=== PATIENT | male | born 1965 | race Caucasian/White ===

== ENCOUNTER 2019-04-11 12:11 | Inpatient (IN) | payer OTHER ==
[~2019-04-11] VITALS: Ht 172.7 cm; Wt 136.3 kg
[2019-04-11] MEDS ORDERED: IV NORMAL SALINE 1000ML BAG 1,000 ML IV SCH (12:42)
[2019-04-11] MEDS ORDERED: ONDANSETRON PF 4 MG/2 ML VIAL. IV ONE (12:45)
--- NOTE | 2019-04-11 12:53 | PHYS DOC ---
Past Medical History Past Medical History: Depression Past Surgical History: Appendectomy, Other Additional Past Surgical Histo: Lapband, Hernia, Urethral enlargement, Adult General Chief Complaint Chief Complaint: ABDOMINAL PAIN HPI HPI Patient is a 53 year old male who presents with states approximately 2 weeks ago had some constipation issues and he states he drank a lot of water and had large stools. Denies taking any laxatives. Patient states he then started having some diarrhea. Patient states he's had continuous bloating with occasional sharp pains in his lower abdomen bilaterally. Patient states he does have some nausea and yesterday he vomited a couple times. Patient states he is keeping fluids down but he has no appetite for food. Patient states he is getting occasional dizziness but he thinks that that is from being dehydrated. Patient currently has no pain he just feels pressure in his abdomen all over. Patient states he has a lap band in place. Review of Systems Review of Systems Respiratory: Denies cough.+ shortness of breath [] Cardiovascular: No additional information not addressed in HPI [] GI: abdominal pain, nausea, vomiting, denies bloody stools, + diarrhea [] Neurologic: Dizziness, Denies headache, focal weakness or sensory changes [] All other systems were reviewed and found to be within normal limits, except as documented in this note. Current Medications Current Medications Current Medications Medications (Trade) Dose Ordered Sig/Jose Start Time Stop Time Status Last Admin Dose Admin Info (CONTRAST GIVEN -- Rx MONITORING) 1 each PRN DAILY PRN 04/11/19 13:15 04/13/19 13:14 Iohexol (Omnipaque 300 Mg/ml) 75 ml 1X ONCE 04/11/19 13:00 04/11/19 13:04 DC 04/11/19 13:00 75 ML Ondansetron HCl (Zofran) 4 mg 1X ONCE 04/11/19 12:45 04/11/19 12:47 DC 04/11/19 13:30 4 MG Sodium Chloride 1,000 ml @ 1,000 mls/hr Q1H 04/11/19 12:42 04/11/19 13:41 DC 04/11/19 13:30 1,000 MLS/HR Allergies Allergies Allergies Coded Allergies Type Severity Reaction Last Updated Verified No Known Drug Allergies 04/11/19 No Physical Exam Physical Exam Constitutional: Well developed, well nourished, no acute distress, non-toxic appearance. [] HENT: Normocephalic, atraumatic, bilateral external ears normal, oropharynx moist, no oral exudates, nose normal. [] Eyes: PERRLA, EOMI, conjunctiva normal, no discharge. [] Neck: Normal range of motion, no tenderness, supple, no stridor. [] Cardiovascular:Heart rate regular rhythm, no murmur [] Lungs & Thorax: Bilateral breath sounds clear to auscultation [] Abdomen: Bowel sounds normal, distended, no tenderness, no masses, no pulsatile masses. [] Skin: Warm, dry, no erythema, no rash. [] Back: No tenderness, no CVA tenderness. [] Extremities: No tenderness, no cyanosis, no clubbing, ROM intact, no edema. [] Neurologic: Alert and oriented X 3, normal motor function, normal sensory f unction, no focal deficits noted. [] Psychologic: Affect normal, judgement normal, mood normal. [] Current Patient Data Vital Signs Vital Signs Date Time Temp Pulse Resp B/P (MAP) Pulse Ox O2 Delivery O2 Flow Rate FiO2 04/11/19 12:25 97.8 104 18 141/96 (111) 96 Room Air 97.8 Lab Values Laboratory Tests Test 04/11/19 13:00 White Blood Count 8.4 x10^3/uL (4.0-11.0) Red Blood Count 5.55 x10^6/uL (4.30-5.70) Hemoglobin 15.7 g/dL (13.0-17.5) Hematocrit 44.8 % (39.0-53.0) Mean Corpuscular Volume 81 fL (79-100) Mean Corpuscular Hemoglobin 28 pg (25-35) Mean Corpuscular Hemoglobin Concent 35 g/dL (31-37) Red Cell Distribution Width 13.4 % (11.5-14.5) Platelet Count 306 x10^3/uL (140-400) Neutrophils (%) (Auto) 63 % (31-73) Lymphocytes (%) (Auto) 22 % (24-48) L Monocytes (%) (Auto) 14 % (0-9) H Eosinophils (%) (Auto) 1 % (0-3) Basophils (%) (Auto) 1 % (0-3) Neutrophils # (Auto) 5.3 x10^3/uL (1.8-7.7) Lymphocytes # (Auto) 1.8 x10^3/uL (1.0-4.8) Monocytes # (Auto) 1.2 x10^3/uL (0.0-1.1) H Eosinophils # (Auto) 0.1 x10^3/uL (0.0-0.7) Basophils # (Auto) 0.1 x10^3/uL (0.0-0.2) Sodium Level 132 mmol/L (136-145) L Potassium Level 3.8 mmol/L (3.5-5.1) Chloride Level 99 mmol/L (98-107) Carbon Dioxide Level 25 mmol/L (21-32) Anion Gap 8 (6-14) Blood Urea Nitrogen 13 mg/dL (8-26) Creatinine 1.0 mg/dL (0.7-1.3) Estimated GFR (Cockcroft-Gault) 77.6 BUN/Creatinine Ratio 13 (6-20) Glucose Level 113 mg/dL (70-99) H Calcium Level 8.7 mg/dL (8.5-10.1) Total Bilirubin 0.6 mg/dL (0.2-1.0) Aspartate Amino Transferase (AST) 32 U/L (15-37) Alanine Aminotransferase (ALT) 27 U/L (16-63) Alkaline Phosphatase 89 U/L (46-116) Troponin I Quantitative < 0.017 ng/mL (0.000-0.055) Total Protein 7.8 g/dL (6.4-8.2) Albumin 3.0 g/dL (3.4-5.0) L Albumin/Globulin Ratio 0.6 (1.0-1.7) L Lipase 136 U/L (73-393) Laboratory Tests 04/11/19 13:00 Laboratory Tests 04/11/19 13:00 EKG EKG SINUS RHYTHM AND NO STEMI[] Interpretation Time: [address] WEINSTEIN Radiology/Procedures Radiology/Procedures [] Impressions: [facility] [address] [place], [place] [id number] IMAGING REPORT Signed PATIENT: ELEANOR SHUKLA ACCOUNT: [id number] : 1965 LOCATION: ER AGE: 53 SEX: M EXAM STATUS: REG ER ORD. PHYSICIAN: TESHA SHARPE APRN REASON: epigastric pain PROCEDURE: PORTABLE CHEST 1V PORTABLE CHEST 1V Clinical Indication: Epigastric pain Comparison: None. Findings: Probably tortuous thoracic aorta. The cardiac size is normal. Relatively lucent opacity right paratracheal region may be vascular or small azygos fissure or prominent manubrium. Lungs are clear. There is no pneumothorax. No pleural effusion is appreciated. No acute bone abnormality. IMPRESSION: No acute cardiopulmonary process. Electronically signed by: Ulysses Prado MD (04/11/2019 1:29 PM) [facility] DICTATED and SIGNED BY: ULYSSES PRADO MD DATE: 04/11/19 1329 [facility] [address] [place] [address] IMAGING REPORT Signed PATIENT: ELEANOR SHUKLA ACCOUNT: [id number] : 1965 LOCATION: ER AGE: 53 SEX: M EXAM STATUS: REG ER ORD. PHYSICIAN: TESHA SHARPE APRN REASON: constipation, bloating, vomting, hx lap band PROCEDURE: CT ABD PELV W/ IV CONTRST ONLY CT ABD PELV W/ IV CONTRST ONLY History: Constipation, bloating, vomiting Comparison: None. Technique: After administration of intravenous contrast, helical CT of the abdomen and pelvis was performed from the lung bases through the ischial tuberosities. Coronal and sagittal reconstructions were obtained. 75 mL of Omnipaque 300 were used. One or more of the following dose reduction techniques were utilized: Automated exposure control (AEC), Adjustment of mA and/or kV according to patient size, Use of iterative reconstruction technique such as ASiR, CT scan done according to ALARA and image gently/image wisely Abdomen Findings: The visualized lung bases are clear. The liver, gallbladder, pancreas, spleen, and bilateral adrenal glands are normal. Symmetric renal enhancement. There is no focal renal mass. There is no hydronephrosis. Gastric lap band in place. Multiple dilated loops of small bowel containing fluid and gas and measuring up to 4 cm in diameter. Distended large bowel containing gas and fluid. There is no free fluid. There is no mesenteric or retroperitoneal adenopathy. The abdominal aorta is normal in caliber. Pelvis Findings: Urinary bladder is decompressed. No pelvic free fluid. There is no pelvic or inguinal adenopathy. There is no acute bony abnormality. IMPRESSION: Multiple dilated loops of small bowel and well distended large bowel, with gas and fluid throughout the small and large bowel. Findings are favored to represent a nonspecific enteritis or adynamic ileus. Electronically signed by: Katerina Kellogg MD (04/11/2019 2:20 PM) [facility] DICTATED and SIGNED BY: KATERINA KELLOGG MD DATE: 04/11/19 1420 Course & Med Decision Making Course & Med Decision Making Abdomen is distended but there is no pain with palpation. Alert and oriented. Speaks in full clear sentences. Ambulatory with a steady gait. Afebrile. Patient states over the last week or so, he has moments he has become diaphoretic. Patient denies chest pain but states because of all the bloating and tightness in his abdomen he has a hard time taking a deep breath. Skin pink warm and dry. Bowel sounds normal. Mucus membranes are moist. Vital signs within normal limits. Afebrile. Lungs are clear to auscultation in all lobes. Patient has a history of appendectomy, LAP-BAND, depression, hernia. Patient denies numbness or tingling, headache, visual changes, weakness, fever, recent illness, back pain, neck pain, dysuria, chest pain. CT ABD PELV SHOWS IMPRESSION: Multiple dilated loops of small bowel and well distended large bowel, with gas and fluid throughout the small and large bowel. Findings are favored to represent a nonspecific enteritis or adynamic ileus. I have spoken to Dr. Wilson for admission. I will consult GI. Patient will stay nothing by mouth. Dragon Disclaimer Dragon Disclaimer This electronic medical record was generated, in whole or in part, using a voice recognition dictation system. Departure Departure Impression: Primary Impression: Ileus Disposition: ADMITTED INPATIENT Admitting Physician: SOLO (angely) Condition: STABLE Referrals: UNKNOWN PCP NAME (PCP) TESHA SHARPE APRN Apr 11, 2019 12:53
[2019-04-11] MEDS ORDERED: IOHEXOL 300 MG/ML 100ML VIAL. IV ONE (13:00)
[2019-04-11 13:12] LABS: BASO # 0.1 x10^3/uL (0.0-0.2); BASO % 1 % (0-3); EOS # 0.1 x10^3/uL (0.0-0.7); EOS % 1 % (0-3); HEMATOCRIT 44.8 % (39.0-53.0); HEMOGLOBIN 15.7 g/dL (13.0-17.5); LYMPH # 1.8 x10^3/uL (1.0-4.8); LYMPH % 22 % (24-48); MEAN CORPUSCULAR HEMOGLOBIN 28 pg (25-35); MEAN CORPUSCULAR HGB CONC 35 g/dL (31-37); MEAN CORPUSCULAR VOLUME 81 fL (79-100); MONO # 1.2 x10^3/uL (0.0-1.1); MONO % 14 % (0-9); NEUT # 5.3 x10^3/uL (1.8-7.7); NEUT % 63 % (31-73); PLATELET COUNT 306 x10^3/uL (140-400); RED BLOOD COUNT 5.55 x10^6/uL (4.30-5.70); RED CELL DISTRIBUTION WIDTH 13.4 % (11.5-14.5); WHITE BLOOD COUNT 8.4 x10^3/uL (4.0-11.0)
[2019-04-11] MEDS ORDERED: CONTRAST GIVEN. MC PRN (13:15)
[2019-04-11 13:29] LABS: CALCIUM 8.7 mg/dL (8.5-10.1); GFR 77.6; POTASSIUM 3.8 mmol/L (3.5-5.1)
--- NOTE | 2019-04-11 13:32 | RAD ---
PORTABLE CHEST 1V Clinical Indication: Epigastric pain Comparison: None. Findings: Probably tortuous thoracic aorta. The cardiac size is normal. Relatively lucent opacity right paratracheal region may be vascular or small azygos fissure or prominent manubrium. Lungs are clear. There is no pneumothorax. No pleural effusion is appreciated. No acute bone abnormality. IMPRESSION: No acute cardiopulmonary process. Electronically signed by: Ulysses Prado MD (04/11/2019 1:29 PM) [facility]
[2019-04-11 13:34] LABS: ALBUMIN/GLOBULIN RATIO 0.6 (1.0-1.7); TOTAL BILIRUBIN 0.6 mg/dL (0.2-1.0); TOTAL PROTEIN 7.8 g/dL (6.4-8.2)
--- NOTE | 2019-04-11 14:22 | RAD ---
CT ABD PELV W/ IV CONTRST ONLY History: Constipation, bloating, vomiting Comparison: None. Technique: After administration of intravenous contrast, helical CT of the abdomen and pelvis was performed from the lung bases through the ischial tuberosities. Coronal and sagittal reconstructions were obtained. 75 mL of Omnipaque 300 were used. One or more of the following dose reduction techniques were utilized: Automated exposure control (AEC), Adjustment of mA and/or kV according to patient size, Use of iterative reconstruction technique such as ASiR, CT scan done according to ALARA and image gently/image wisely Abdomen Findings: The visualized lung bases are clear. The liver, gallbladder, pancreas, spleen, and bilateral adrenal glands are normal. Symmetric renal enhancement. There is no focal renal mass. There is no hydronephrosis. Gastric lap band in place. Multiple dilated loops of small bowel containing fluid and gas and measuring up to 4 cm in diameter. Distended large bowel containing gas and fluid. There is no free fluid. There is no mesenteric or retroperitoneal adenopathy. The abdominal aorta is normal in caliber. Pelvis Findings: Urinary bladder is decompressed. No pelvic free fluid. There is no pelvic or inguinal adenopathy. There is no acute bony abnormality. IMPRESSION: Multiple dilated loops of small bowel and well distended large bowel, with gas and fluid throughout the small and large bowel. Findings are favored to represent a nonspecific enteritis or adynamic ileus. Electronically signed by: Sammy Kellogg MD (04/11/2019 2:20 PM) [facility]
[2019-04-11] MEDS ORDERED: ONDANSETRON PF 4 MG/2 ML VIAL. IV PRN ×2 (15:15→16:45)
[2019-04-11] MEDS: fentaNYL PF VIAL 100 MCG/2 ML VIAL IV PRN ×2 (15:52→20:55)
[2019-04-11] MEDS: IV NORMAL SALINE 1000ML BAG 1,000 ML IV SCH (15:56)
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
[2019-04-11] MEDS: PSYLLIUM HUSK (SUGAR FREE) 1 PKT PACKET PO SCH ×2 (16:45→17:49)
[2019-04-11] MEDS: KETOROLAC 30 MG/ML VIAL. IVP PRN (16:55)
[2019-04-11] MEDS ORDERED: FLU VAX QS 2019-20 (36MOS+)/PF 0.5 ML SYRINGE. VAX IM ONE (17:30)
[2019-04-11] MEDS ORDERED: LURA20TA PO (17:37)
[2019-04-11] MEDS ORDERED: TRAZ-86 PO (17:37)
[2019-04-11] MEDS ORDERED: LISD30CA5 PO (17:37)
[2019-04-11 19:00] VITALS: BP 118/69
[2019-04-11 23:00] VITALS: BP 120/67
[2019-04-11] MEDS: traZODone 100 MG TABLET. PO SCH (23:15)
[2019-04-12] MEDS: KETOROLAC 30 MG/ML VIAL. IVP PRN ×4 (01:09→22:20)
[2019-04-12] MEDS: IV NORMAL SALINE 1000ML BAG 1,000 ML IV SCH ×2 (01:10→10:11)
[2019-04-12 03:00] VITALS: BP 140/67
[2019-04-12 07:15] VITALS: BP 132/69
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
[2019-04-12] MEDS ORDERED: METOCLOPRAMIDE HCL 10 MG/2 ML VIAL. IVP ONE (07:30)
[2019-04-12] MEDS: NON FORMULARY ITEM (Lisdexamfetamine Dimesylate (Vyvanse) 1 CAP) PO SCH (07:46)
[2019-04-12] MEDS: PSYLLIUM HUSK (SUGAR FREE) 1 PKT PACKET PO SCH (07:46)
--- NOTE | 2019-04-12 10:13 | EKG ---
[facility] [address] [place] [address] Test Date: 2019-04-11 Test Time: 12:51:55 Pat Name: ELEANOR SHUKLA Department: Room: Gender: M Criminal Legal Assistant: : [id number] Requested By: TESHA SHARPE Order Number: [id number] Reading MD: Measurements Intervals Industry Rate: 88 P: 34 TX: 162 QRS: 16 QRSD: 86 T: 27 QT: 396 QTc: 482 Interpretive Statements SINUS RHYTHM PROLONGED QT BORDERLINE ECG No previous ECG available for comparison
[2019-04-12 11:06] VITALS: BP 138/90
[2019-04-12] MEDS: fentaNYL PF VIAL 100 MCG/2 ML VIAL IV PRN (12:47)
--- NOTE | 2019-04-12 13:10 | PDOC2 ---
CONSULT Date of Consult Date of Consult DATE: 04/12/19 TIME: 13:08 Reason for Consult Reason for Consult: Change in bowel habits Past Medical History Cardiovascular: No pertinent hx Pulmonary: No pertinent hx GI: No pertinent hx Heme/Onc: No pertinent hx Hepatobiliary: No pertinent hx Psych: Anxiety, Depression Rheumatologic: No pertinent hx Infectious disease: No pertinent hx ENT: No pertinent hx Renal/: No pertinent hx Endocrine: No pertinent hx Dermatology: No pertinent hx Past Surgical History Past Surgical History: Other (Lap band) Family History Family History: High Cholestrol Social History No ALCOHOL: rare Drugs: None Current Problem List Problem List Problems Medical Problems: (1) Ileus Status: Acute Current Medications Current Medications Current Medications Sodium Chloride 1,000 ml @ 1,000 mls/hr Q1H IV Last administered on 04/11/19at 13:30; Start 04/11/19 at 12:42; Stop 04/11/19 at 13:41; Status DC Ondansetron HCl (Zofran) 4 mg 1X ONCE IV Last administered on 04/11/19at 13:30; Start 04/11/19 at 12:45; Stop 04/11/19 at 12:47; Status DC Iohexol (Omnipaque 300 Mg/ml) 75 ml 1X ONCE IV Last administered on 04/11/19at 13:00; Start 04/11/19 at 13:00; Stop 04/11/19 at 13:04; Status DC Info (CONTRAST GIVEN -- Rx MONITORING) 1 each PRN DAILY PRN MC SEE COMMENTS; Start 04/11/19 at 13:15; Stop 04/13/19 at 13:14 Ondansetron HCl (Zofran) 4 mg PRN Q8HRS PRN IV NAUSEA/VOMITING; Start 04/11/19 at 15:15; Stop 04/11/19 at 16:36; Status DC Fentanyl Citrate (Fentanyl 2ml Vial) 50 mcg PRN Q1HR PRN IV PAIN Last administered on 04/12/19at 12:47; Start 04/11/19 at 15:15; Stop 04/12/19 at 15:14 Sodium Chloride 1,000 ml @ 100 mls/hr Q10H IV Last administered on 04/12/19at 10:11; Start 04/11/19 at 15:06; Stop 04/12/19 at 15:05 Ondansetron HCl (Zofran) 4 mg PRN Q6HRS PRN IV NAUSEA/VOMITING Last administered on 04/11/19at 20:55; Start 04/11/19 at 16:45 Ketorolac Tromethamine (Toradol 30mg Vial) 30 mg PRN Q6HRS PRN IVP PAIN Last administered on 04/12/19at 07:47; Start 04/11/19 at 16:45; Stop 04/16/19 at 16:44 Psyllium Hydrophilic Mucilloid (Metamucil Fiber Packet) 1 pkt DAILY PO Last administered on 04/12/19at 07:46; Start 04/11/19 at 16:45 Influenza Virus Vaccine Quadrival (Afluria Quad 2019-20 (3yr Up) Syringe) 0.5 ml ONCE ONCE VAX IM ; Start 04/11/19 at 17:30; Stop 04/11/19 at 17:35; Status DC Trazodone HCl (Desyrel) 100 mg QHS PO ; Start 04/11/19 at 23:15 Non-Formulary Medication (Lisdexamfetamine Dimesylate (Vyvanse)) 1 cap DAILY PO ; Start 04/12/19 at 09:00; Status UNV Non-Formulary Medication (Lurasidone Hcl (Latuda)) 1 tab QHS PO ; Start 04/12/19 at 21:00; Status UNV Metoclopramide HCl (Reglan Vial) 10 mg 1X ONCE IVP Last administered on 04/12/19at 07:47; Start 04/12/19 at 07:30; Stop 04/12/19 at 07:31; Status DC Active Scripts Active Reported Latuda (Lurasidone Hcl) 20 Mg Tablet 1 Tab PO QHS 30 Days Trazodone Hcl 100 Mg Tablet 1 Tab PO QHS Vyvanse (Lisdexamfetamine Dimesylate) 30 Mg Capsule 1 Cap PO DAILY MDD 1 Capsule(s) 30 Days Allergies Allergies: Coded Allergies: No Known Drug Allergies (Unverified , 04/11/19) Vitals VITALS Vital Signs Date Time Temp Pulse Resp B/P (MAP) Pulse Ox O2 Delivery O2 Flow Rate FiO2 04/12/19 12:47 96 Room Air 04/12/19 11:06 97.7 83 18 138/90 (106) 97.7 Labs Labs Laboratory Tests Test 04/11/19 13:00 White Blood Count 8.4 x10^3/uL (4.0-11.0) Red Blood Count 5.55 x10^6/uL (4.30-5.70) Hemoglobin 15.7 g/dL (13.0-17.5) Hematocrit 44.8 % (39.0-53.0) Mean Corpuscular Volume 81 fL (79-100) Mean Corpuscular Hemoglobin 28 pg (25-35) Mean Corpuscular Hemoglobin Concent 35 g/dL (31-37) Red Cell Distribution Width 13.4 % (11.5-14.5) Platelet Count 306 x10^3/uL (140-400) Neutrophils (%) (Auto) 63 % (31-73) Lymphocytes (%) (Auto) 22 % (24-48) Monocytes (%) (Auto) 14 % (0-9) Eosinophils (%) (Auto) 1 % (0-3) Basophils (%) (Auto) 1 % (0-3) Neutrophils # (Auto) 5.3 x10^3/uL (1.8-7.7) Lymphocytes # (Auto) 1.8 x10^3/uL (1.0-4.8) Monocytes # (Auto) 1.2 x10^3/uL (0.0-1.1) Eosinophils # (Auto) 0.1 x10^3/uL (0.0-0.7) Basophils # (Auto) 0.1 x10^3/uL (0.0-0.2) Sodium Level 132 mmol/L (136-145) Potassium Level 3.8 mmol/L (3.5-5.1) Chloride Level 99 mmol/L (98-107) Carbon Dioxide Level 25 mmol/L (21-32) Anion Gap 8 (6-14) Blood Urea Nitrogen 13 mg/dL (8-26) Creatinine 1.0 mg/dL (0.7-1.3) Estimated GFR (Cockcroft-Gault) 77.6 BUN/Creatinine Ratio 13 (6-20) Glucose Level 113 mg/dL (70-99) Calcium Level 8.7 mg/dL (8.5-10.1) Total Bilirubin 0.6 mg/dL (0.2-1.0) Aspartate Amino Transf (AST/SGOT) 32 U/L (15-37) Alanine Aminotransferase (ALT/SGPT) 27 U/L (16-63) Alkaline Phosphatase 89 U/L (46-116) Troponin I Quantitative < 0.017 ng/mL (0.000-0.055) Total Protein 7.8 g/dL (6.4-8.2) Albumin 3.0 g/dL (3.4-5.0) Albumin/Globulin Ratio 0.6 (1.0-1.7) Lipase 136 U/L (73-393) Thyroid Stimulating Hormone (TSH) 2.230 uIU/mL (0.358-3.74) Assessment/Plan Assessment/Plan Change in bowel habits- most likely secondary to self limited enteritis. New onset IBD, clon cancer, and/or diverticular stricture in differential. Plan advance diet increased fiber and amitiza 8 mcg bid o/p colonoscopy if above works-otherwise inpatient work-up Full note dictated AMARILYS OMALLEY MD Apr 12, 2019 13:10
[2019-04-12] MEDS: LUBIPROSTONE 24 MCG CAPSULE PO SCH ×2 (13:19→20:44)
--- NOTE | 2019-04-12 14:48 | NUR ---
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 Abbott, new order to cancel order for c-diff.
--- NOTE | 2019-04-12 15:00 | CONS ---
DATE OF CONSULTATION: 04/12/2019 GASTROINTESTINAL CONSULTATION REASONS FOR CONSULTATION: Change in bowel habits, diarrhea, and constipation. HISTORY OF PRESENT ILLNESS: This is a 53-year-old male with past medical history significant for lap band, hernia repair, appendectomy, and depression, who is admitted to [facility] with a change in bowel habits over the past 2 weeks. He states that he originally had an episode of constipation and then followed by diarrhea with no movement since. There has been no history of colon cancer. He has not undergone colonoscopy and CT scan did reveal some dilated loops of small and large bowel without transition point or obstruction, more consistent with an ileus. With the continued issues and the fact that he is passing flatus presently, a consultation is requested. PAST MEDICAL HISTORY: Obesity. PAST SURGICAL HISTORY: Status post lap band surgery, status post appendectomy. ALLERGIES: None. MEDICATIONS: Include Latuda, Vyvanse, Desyrel, Toradol, and fentanyl. SOCIAL HISTORY: He does not drink or smoke at this time. FAMILY HISTORY: Noncontributory. REVIEW OF SYSTEMS: Per records. PHYSICAL EXAMINATION: GENERAL: Reveals a well-developed, well-nourished white male, who is alert, cooperative, in no acute distress. VITAL SIGNS: Temperature 97.7, pulse 83, respiratory rate 18, blood pressure is 138/90. HEENT: Normocephalic, atraumatic head. Pupils and extraocular muscles are not tested. Sclerae are anicteric. NECK: Supple. LUNGS: Clear. CARDIOVASCULAR: Reveals an S1 and S2 without S3, S4, or appreciable murmur. ABDOMEN: Reveals a soft and rotund abdomen, which is mildly distended with hypoactive bowel sounds without appreciable hepatosplenomegaly and with a right lower quadrant appendectomy incision. EXTREMITIES: Reveals no cyanosis, clubbing, or edema. LABORATORY STUDIES: Sodium is 132, potassium 3.8, chloride 99, BUN 13, creatinine 1.0, glucose 113, calcium 8.7, total bilirubin 0.6, AST 32, ALT 27, alkaline phosphatase 89, total protein 7.8, albumin 3.0, and lipase 136. TSH is 2.230. Hemoglobin is 15.7, hematocrit 44.8, white count is 8.4, platelet count is 306,000. IMAGING: CT scan of the abdomen and pelvis reveals multiple dilated loops of small bowel and large bowel with gas and fluid filled small and large bowel consistent with nonspecific enteritis or adynamic ileus. Obstruction or volvulus is less likely. IMPRESSION AND PLAN: Abdominal pain with change in bowel habits, most likely secondary to resolving enteritis. Differential diagnosis includes mesenteric ischemia, diverticular stricture, and colon cancer. Therefore, we recommend bowel stimulation with fiber and Amitiza 8 mcg p.o. b.i.d. If he is able to tolerate this, we would have his diet advanced. He will proceed with an outpatient colonoscopy. If not, he will proceed with inpatient studies to further assess symptoms. AMARILYS OMALLEY MD DR: ARIANA/russ JOB#: [id number] / [id number] JAGDISH Verma MD
[2019-04-12 15:01] VITALS: BP 129/75
[2019-04-12 19:20] VITALS: BP 130/83
[2019-04-12] MEDS: traZODone 100 MG TABLET. PO SCH (20:44)
[2019-04-12] MEDS ORDERED: NON FORMULARY ITEM (Lurasidone Hcl (Latuda) 1 TAB) PO SCH (21:00)
[2019-04-12 23:14] VITALS: BP 126/60
[2019-04-13 03:08] VITALS: BP 122/91
[2019-04-13 07:00] VITALS: BP 124/81
[2019-04-13] MEDS: NON FORMULARY ITEM (Lisdexamfetamine Dimesylate (Vyvanse) 1 CAP) PO SCH (07:36)
[2019-04-13] MEDS: PSYLLIUM HUSK (SUGAR FREE) 1 PKT PACKET PO SCH (07:47)
[2019-04-13] MEDS: LUBIPROSTONE 24 MCG CAPSULE PO SCH (07:47)
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
[2019-04-13 11:59] VITALS: BP 139/89
--- NOTE | 2019-04-13 12:58 | PDOC ---
G I PROGRESS NOTE Subjective Passed lots of flatus, some soft stool. Feels much better. Tolerating fulls. Physical Exam Lungs clear. RRR Abdomen soft, obese. Bowel sounds present. Review of Relevant I have reviewed the following items ortega (where applicable) has been applied. Labs Laboratory Tests Test 04/11/19 13:00 White Blood Count 8.4 x10^3/uL (4.0-11.0) Red Blood Count 5.55 x10^6/uL (4.30-5.70) Hemoglobin 15.7 g/dL (13.0-17.5) Hematocrit 44.8 % (39.0-53.0) Mean Corpuscular Volume 81 fL (79-100) Mean Corpuscular Hemoglobin 28 pg (25-35) Mean Corpuscular Hemoglobin Concent 35 g/dL (31-37) Red Cell Distribution Width 13.4 % (11.5-14.5) Platelet Count 306 x10^3/uL (140-400) Neutrophils (%) (Auto) 63 % (31-73) Lymphocytes (%) (Auto) 22 % (24-48) Monocytes (%) (Auto) 14 % (0-9) Eosinophils (%) (Auto) 1 % (0-3) Basophils (%) (Auto) 1 % (0-3) Neutrophils # (Auto) 5.3 x10^3/uL (1.8-7.7) Lymphocytes # (Auto) 1.8 x10^3/uL (1.0-4.8) Monocytes # (Auto) 1.2 x10^3/uL (0.0-1.1) Eosinophils # (Auto) 0.1 x10^3/uL (0.0-0.7) Basophils # (Auto) 0.1 x10^3/uL (0.0-0.2) Sodium Level 132 mmol/L (136-145) Potassium Level 3.8 mmol/L (3.5-5.1) Chloride Level 99 mmol/L (98-107) Carbon Dioxide Level 25 mmol/L (21-32) Anion Gap 8 (6-14) Blood Urea Nitrogen 13 mg/dL (8-26) Creatinine 1.0 mg/dL (0.7-1.3) Estimated GFR (Cockcroft-Gault) 77.6 BUN/Creatinine Ratio 13 (6-20) Glucose Level 113 mg/dL (70-99) Calcium Level 8.7 mg/dL (8.5-10.1) Total Bilirubin 0.6 mg/dL (0.2-1.0) Aspartate Amino Transf (AST/SGOT) 32 U/L (15-37) Alanine Aminotransferase (ALT/SGPT) 27 U/L (16-63) Alkaline Phosphatase 89 U/L (46-116) Troponin I Quantitative < 0.017 ng/mL (0.000-0.055) Total Protein 7.8 g/dL (6.4-8.2) Albumin 3.0 g/dL (3.4-5.0) Albumin/Globulin Ratio 0.6 (1.0-1.7) Lipase 136 U/L (73-393) Thyroid Stimulating Hormone (TSH) 2.230 uIU/mL (0.358-3.74) Vitals/I & O Vital Sign - Last 24 Hours 04/12/19 04/12/19 04/12/19 04/12/19 13:21 15:01 19:20 20:11 Temp 98.1 98.6 98.1 98.6 Pulse 91 82 Resp 18 18 B/P (MAP) 129/75 (93) 130/83 (99) Pulse Ox 96 95 96 O2 Delivery Room Air Room Air Room Air Room Air 04/12/19 04/13/19 04/13/19 04/13/19 23:14 03:08 07:00 07:15 Temp 98.3 98.6 97.6 98.3 98.6 97.6 Pulse 91 75 81 Resp 18 16 16 B/P (MAP) 126/60 (82) 122/91 (101) 124/81 (95) Pulse Ox 95 97 94 O2 Delivery Room Air Room Air Room Air Room Air Intake and Output 04/12/19 04/12/19 04/13/19 15:00 23:00 07:00 Intake Total 40 ml 1360 ml 360 ml Output Total 400 ml 250 ml Balance 40 ml 960 ml 110 ml Problem List Problems Medical Problems: (1) Ileus Status: Acute Assessment Ileus, cause unclear, but seems improved/resolved. Plan of Care: Continue current Tx, Mgmt Plan of Care Note OK to try advancing diet. MIKAELA MARRUFO MD Apr 13, 2019 12:58
[2019-04-13] MEDS ORDERED: TRAM50TA PO (14:00)
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
--- NOTE | 2019-04-13 14:25 | NUR ---
Discharge Note: DAQUAN SHUKLA CARVER Discharge instructions and discharge home medications reviewed with Patient and a copy given. All questions have been answered and understanding verbalized. The following instructions and handouts were given: information about follow up appointment, ileus, tramadol information, etc. Discontinued lines and drains: IV line in right hand removed, catheter tip intact. Patient discharged to home with self care with girlfriend, wheelchair used for mobility to discharge vehicle.
== END 2019-04-13 14:25 | disposition home or self-care (01) | DRG 389 ==
LOC: ER 12:11 → 4 NORTH 15:00
PROVIDERS: ADMIT Internal Medicine; ATTEND Internal Medicine
DX: K56.0 Paralytic ileus (principal); Z68.42 Body mass index [BMI] 45.0-49.9, adult; K52.9 Noninfective gastroenteritis and colitis, unspecified; E86.0 Dehydration; E66.01 Morbid (severe) obesity due to excess calories; F41.8 Other specified anxiety disorders; Z90.49 Acquired absence of other specified parts of digestive tract
CPT/HCPCS: 36415; 71045; 74177; 80053; 83690; 84443; 84484; 85025; 90471; 90686; 93005; 96361; 96374; J1885; J2405; J2765; J3010; J7030; Q9967; 99285-25; G0378